=== PATIENT | female | born 1945 | race Caucasian/White ===

== ENCOUNTER → 2017-10-15 | Outpatient (CLI) | payer MEDICARE, BC ==
[~2017-10-15] MED LIST: ADV100/50 INH; ADV250/50 INH; ALB0.5 INH; ALB18R INH; ALB6.7R INH; ALBU2.5V36 IH; ALBU8.5H IH; ALBU8.5H12 IH; ASPI-764 PO; ASPI-816 PO; ASPI324T37 PO; AUG875 PO; AZI250 PO; AZIT-17 PO; BACDS PO; BUDE10.2 IH; BUDE10.2 INH; CALC500T76 PO; CEFU250 PO; CHOL10005 PO; CHOL400C10 PO; DIV500ER PO; FLU IM; FLU45SYR17 IM; FLU45SYR25 IM ONLY; FLUT16SP19 NS; GUALA600 PO; LEV15R INH; LEVA1.2512 IH; LOP2 PO; METH4TAB66 PO; MON10 PO; MON4 PO; MONT10TA4 PO; MULT-1335 PO; MULT-820 PO; MULT-977 PO; OMEP-125 PO; ONDA4TAB PO; OXYGEN INH; OXYGENHOME INH; PAN40 PO; PNEU0.5D3 IM; PRE10 PO; PRE20 PO; PROAIRPT IH; RANI300C8 PO; ROBC PO; TIO18R IH; TIO18R INH; UMEC62.5 INH
[2017-10-15 10:58] LABS: PLATELET COUNT, AUTOMATED 259 K/uL (150-450)
[2017-10-15 11:15] LABS: LDL CHOLESTEROL 146 mg/dl
== END ==
LOC: LAB 10:40
PROVIDERS: ATTEND Internal Medicine
DX: E78.5 Hyperlipidemia, unspecified (principal); R03.0 Elevated blood-pressure reading, without diagnosis of hypertension
CPT/HCPCS: 36415; 82040; 82247; 82310; 82374; 82435; 82465; 82565; 82947; 83718; 84075; 84132; 84155; 84295; 84450; 84460; 84478; 84520; 85025

== ENCOUNTER → 2018-01-30 | Outpatient (CLI) | payer MEDICARE, BC ==
[~2018-01-30] MED LIST changes: -ASPI-816 PO; +ASPI-870 PO; +PNEI IM; +PRED20TA6 PO
== END ==
LOC: LAB 11:40
PROVIDERS: ATTEND Nurse Practitioner Family
DX: J02.9 Acute pharyngitis, unspecified (principal)
CPT/HCPCS: 87081